=== PATIENT | female | born 1970 | race African-American/Black ===

== ENCOUNTER 2017-02-23 17:23 | Emergency (ER) | payer MEDICAID ==
--- NOTE | 2017-02-23 17:46 | EDM.PDOC ---
ED HPI GENERAL MEDICAL PROBLEM - General Chief Complaint: General Stated Complaint: LIGHT STROKE Time Seen by Provider: 02/23/17 17:40 - History of Present Illness INITIAL COMMENTS - FREE TEXT/NARRATIVE: HISTORY AND PHYSICAL: History of present illness: Patient 46-year-old black female with history of hypertension presents with a concern of polymyalgia she states she's had some upper back discomfort denies nausea vomiting fever chills chest pain shortness of breath cough palpitations or any other concern she recently relocated from [place] and states she's been off her blood pressure medicine for several months blood pressure here is 98/60 on arrival Review of systems: As per history of present illness and below otherwise all systems reviewed and negative. Past medical history: As per history of present illness and as reviewed below otherwise noncontributory. Surgical history: As per history of present illness and as reviewed below otherwise noncontributory. Social history: No reported history of drug or alcohol abuse. Family history: As per history of present illness and as reviewed below otherwise noncontributory. Physical exam: HEENT: Atraumatic, normocephalic, pupils reactive, negative for conjunctival pallor or scleral icterus, mucous membranes moist, throat clear, neck supple, nontender, trachea midline. Lungs: Clear to auscultation, breath sounds equal bilaterally, chest nontender. Heart: S1S2, regular, negative for clicks, rubs, or JVD. Abdomen: Soft, nondistended, nontender. Negative for masses or hepatosplenomegaly. Negative for costovertebral tenderness. Pelvis: Stable nontender. Genitourinary: Deferred. Rectal: Deferred. Extremities: Atraumatic, negative for cords or calf pain. Neurovascular unremarkable. Neuro: Awake, alert, oriented. Cranial nerves II through XII unremarkable. Cerebellum unremarkable. Motor and sensory unremarkable throughout. Exam nonfocal. Diagnostics: Chest x-ray EKG Therapeutics: None Impression: #1 history of hypertension #2 medical screening exam #3 polymyalgia Definitive disposition and diagnosis as appropriate pending reevaluation and review of above. Abdominal Pain Score (Numeric/FACES): 4 - Related Data Allergies Allergy/AdvReac Type Severity Reaction Status Date / Time No Known Allergies Allergy Verified 02/23/17 17:37 Home Meds: Home Meds Atenolol 5 mg PO 02/23/17 [History] ED ROS GENERAL - Review of Systems Review Of Systems: ROS reveals no pertinent complaints other than HPI. ED EXAM, GENERAL - Physical Exam Exam: See Below (See dictation) Course - Vital Signs Last Recorded V/S: Last Vital Signs Temp 36.7 C 02/23/17 17:38 Pulse 101 H 02/23/17 17:38 Resp 18 02/23/17 17:38 BP 98/48 L 02/23/17 17:38 Pulse Ox 100 02/23/17 17:38 - Orders/Labs/Meds Orders: Active Orders 24 hr Category Date Time Status EKG Documentation Completion [RC] STAT Care 02/23/17 17:42 Ordered Chest 1V Frontal [CR] Stat Exams 02/23/17 17:42 Ordered Departure - Departure Time of Disposition: 17:44 Disposition: Home, Self-Care 01 Condition: Good Clinical Impression: History of hypertension, Encounter for medical screening examination - Discharge Information Referrals: PCP,None [Primary Care Provider] - Additional Instructions: The following information is given to patients seen in the emergency department who are being discharged to home. This information is to outline your options for follow-up care. We provide all patients seen in our emergency department with a follow-up referral. The need for follow-up, as well as the timing and circumstances, are variable depending upon the specifics of your emergency department visit. If you don't have a primary care physician on staff, we will provide you with a referral. We always advise you to contact your personal physician following an emergency department visit to inform them of the circumstance of the visit and for follow-up with them and/or the need for any referrals to a consulting specialist. The emergency department will also refer you to a specialist when appropriate. This referral assures that you have the opportunity for followup care with a specialist. All of these measure are taken in an effort to provide you with optimal care, which includes your followup. Under all circumstances we always encourage you to contact your private physician who remains a resource for coordinating your care. When calling for followup care, please make the office aware that this follow-up is from your recent emergency room visit. If for any reason you are refused follow-up, please contact the [facility] emergency department at and asked to speak to the emergency department charge nurse. [facility] [address] [place] [id number] Follow-up clinic above call for routine appointment return as needed as discussed Motrin/Tylenol as directed - My Orders Last 24 Hours: My Active Orders 02/23/17 17:42 EKG Documentation Completion [RC] STAT Chest 1V Frontal [CR] Stat - Assessment/Plan Last 24 Hours: My Active Orders 02/23/17 17:42 EKG Documentation Completion [RC] STAT Chest 1V Frontal [CR] Stat
--- NOTE | 2017-02-24 10:53 | CR ---
EXAM DATE: 02/23/17 PATIENT'S AGE: 46 Patient: RYAN RUBI Facility: [place], [place] Site . Site : [id number] Study: XRay Chest [id number]/31/2017 6:14:07 PM Ordering Physician: Doctor Jorgensen Final Report: INDICATION: Chest pain, shortness of breath. TECHNIQUE: Chest radiograph 1 view COMPARISON: None FINDINGS: Cardiovascular and mediastinum: The heart silhouette is normal in size and morphology. The mediastinum is normal in appearance. Lungs and pleural spaces: Both lungs are unremarkable in appearance. No sign of pleural effusion seen. No pneumothorax is identified. Bones and soft tissues: No significant findings. IMPRESSION: 1. No acute cardiopulmonary disease is seen. Dictated by Domo Mtz MD @ 02/23/2017 6:59:25 PM Dictated by: Domo Mtz MD @ 02/23/2017 19:02:18 (Electronic Signature) Report Signed by Proxy. KOBI
== END 2017-02-23 18:45 | disposition home or self-care (01) ==
LOC: MW.ED 17:23
DX: M35.3 Polymyalgia rheumatica (principal); I10 Essential (primary) hypertension
CPT/HCPCS: 71010; 71010-26; 93005; 99283; 99284-25

== ENCOUNTER 2017-02-24 08:12 | Emergency (ER) | payer MEDICAID | END 2017-02-24 08:32 | disposition left against medical advice (07) | LOC: MW.ED 08:12 | DX: Z53.21 Procedure and treatment not carried out due to patient leaving prior to being seen by health care provider (principal) ==

== ENCOUNTER 2022-10-25 16:18 | Emergency (ER) | payer SELFPAY ==
[2022-10-25] MEDS ORDERED: Acetaminophen 500 MG Tab PO STA (18:28)
[2022-10-25] MEDS ORDERED: oxyCODONE 5 MG/5 ML Cup PO ONE (18:47)
[2022-10-25] MEDS ORDERED: oxyCODONE 5 MG Tab PO STA (18:58)
== END 2022-10-25 19:28 | disposition home or self-care (01) ==
LOC: MW.ED 16:18
DX: M25.561 Pain in right knee (principal)
CPT/HCPCS: 29505; 73562; 99283; A9270